=== PATIENT | male | born 1995 | race Two or more races ===

== ENCOUNTER 2024-03-11 20:41 | Emergency (ER) | payer MEDICAID, OTHER ==
[~2024-03-11] VITALS: Ht 177.8 cm; Wt 91.5 kg
[2024-03-11 22:27] LABS: Basophils # (auto) 0 10 ^3/uL (0-0.2); Basophils % (auto) 0.2 % (0.0-2.0); Eosinophils # (auto) 0.1 10 ^3/uL (0-0.8); Eosinophils % (auto) 1.1 % (0.0-7.0); Hematocrit 47.9 % (41.0-53.0); Hemoglobin 16.4 g/dL (13.5-17.5); Lymphocytes # (auto) 1.8 10 ^3/uL (0.4-5.4); Lymphocytes % (auto) 23.1 % (10.0-50.0); Mean Corpuscular Hemoglobin 30.4 pg (28.0-32.0); Mean Corpuscular Hgb Conc. 34.2 g/dL (32.0-36.0); Mean Corpuscular Volume 88.8 fL (80.0-100.0); Monocytes # (auto) 0.6 10 ^3/uL (0-1.3); Monocytes % (auto) 8.1 % (0.0-12.0); Neutrophils # (auto) 5.1 10 ^3/uL (1.6-8.6); Neutrophils % (auto) 67.5 % (37.0-80.0); Nucleated Red Blood Cells % 0.2 %; Red Blood Cells 5.39 10^6/uL (4.5-5.90); Red Cell Distribution Width 13.7 % (11.8-14.3); White Blood Cell 7.6 10^3/uL (4.4-10.8)
[2024-03-11 22:36] LABS: Chloride 107 mmol/L (98-107); Potassium 3.9 mmol/L (3.5-5.1); Sodium 139 mmol/L (136-145)
[2024-03-11 22:37] LABS: Anion Gap 6 (5-15); Calcium 10.4 mg/dL (8.5-10.1); Carbon Dioxide 26 mmol/L (20-30)
[2024-03-11 22:42] LABS: BUN/Creatinine Ratio 10.1 (10.0-20.0); Blood Urea Nitrogen 11 mg/dL (9-23); Glucose 106 mg/dL (74-106)
[2024-03-12 00:35] VITALS: PULSE 72; RESP 18; O2SAT 96
[2024-03-12 00:39] VITALS: BP 130/84; PULSE 71; RESP 17; TEMP 98; O2SAT 97
== END 2024-03-12 00:51 | disposition home or self-care (01) ==
LOC: ER 20:41
DX: R07.9 Chest pain, unspecified (principal); F12.10 Cannabis abuse, uncomplicated
CPT/HCPCS: 36415; 71045; 80048; 84484; 85025; 93005

== ENCOUNTER 2025-08-02 09:38 | Inpatient (IN) | payer MEDICAID, OTHER ==
[~2025-08-02] VITALS: Ht 177.8 cm; Wt 112.0 kg
--- NOTE | 2025-08-02 10:25 | ED.PDOC ---
GI ASSESSMENT HPI Comments This is a 29 year old male presenting to the ED with chief complaint of abdominal pain. Patient reports that he has been experiencing LLQ abdominal pain with associated headache, nausea, and diarrhea since last night. Patient relays that it started after hiking without eating food until his symptoms started, but no relief in pain after eating. Patient notes having nausea and diarrhea every hour. Patient denies any vomiting, dizziness, fever, chills, chest pain, or SOB. Chief Complaint: Abdominal Pain Time Seen by MD: 10:24 Reviewed Notes: Nurses Notes, Medications, Allergies Allergies: Coded Allergies: NO KNOWN ALLERGIES (Unverified , 08/02/25) Information Source: Patient Mode of Arrival: Ambulatory Timing: Days Duration: Since onset Prehospital treatment: None ( ) Quality: Sharp Vomitus: None Stool: Watery Severity: Moderate Recent: None Recent Hx of: None Pain Location: LLQ Modifying Factors: Nothing Associated sign and symptoms: Nausea, Diarrhea, Abdominal Pain Past Medical History PAST MEDICAL HISTORY: Denies Surgical History: Denies all surgeries Family History Family History: Reviewed,noncontributory to illness, No family hx of Cancer, No family hx of DM, No family hx of Heart garrett, No family hx of HTN, No family hx ofKidney garrett, No family hx of Liver garrett, No family hx of Lung garrett, No family hx of Stroke Social History Smoker: Non-Smoker Alcohol: Denies ETOH Use Drugs: Cocaine, Marijuana Lives In: Home Constitutional: denies: chills, diaphoresis, fatigue, fever, malaise, sweats, weakness, others EENTM: denies: blurred vision, double vision, ear bleeding, ear discharge, ear drainage, ear pain, ear ringing, eye pain, eye redness, hearing loss, mouth pain, mouth swelling, nasal discharge, nose bleeding, nose congestion, nose pain, photophobia, tearing, throat pain, throat swelling, voice changes, others Respiratory: denies: cough, hemoptysis, orthopnea, SOB at rest, shortness of breath, SOB with excertion, stridor, wheezing, others Cardiovascular: denies: chest pain, dizzy spells, diaphoresis, Dyspnea on e xertion, edema, irregular heart beat, left arm pain, lightheadedness, palpitations, PND, syncope, others Gastrointestinal: reports: abdominal pain, diarrhea, nausea; denies: abdomen distended, blood streaked bowels, constipated, dysphagia, difficulty swallowing, hematemesis, melena, poor appetite, poor fluid intake, rectal bleeding, rectal pain, vomiting, others Genitourinary: denies: burning, dysuria, flank pain, frequency, hematuria, incontinence, penile discharge, penile sore, pain, testicle pain, testicle swelling, urgency, others Neurological: reports: headache; denies: dizziness, fainting, left sided numb ness, left sided weakness, numbness, paresthesia, pre-existing deficit, right sided numbness, right sided weakness, seizure, speech problems, tingling, tremors, weakness, others Musculoskeletal: denies: back pain, gout, joint pain, joint swelling, muscle pain, muscle stiffness, neck pain, others Integumetry: denies: bruises, change in color, change in hair/nails, dryness, laceration, lesions, lumps, rash, wounds, others Allergic/Immunocompromised: denies: Difficulty Healing, Frequent Infections, Hives, Itching, others Hematologic/Lymphatic: denies: anemia, blood clots, easy bleeding, easy bruising, swollen glands, others Endocrine: denies: excessive hunger, excessive sweating, excessive thirst, excessive urination, flushing, intolerance to cold, intolerance to heat, unexplained weight gain, unexplained weight loss, others Psychiatric: denies: anxiety, bipolar disorder, depression, hopeless, panic disorder, schizophrenia, sleepless, suicidal, others All Other Systems: Reviewed and Negative Physical Exam General Appearance: Moderate Distress, Normal HEENT: Normal ENT Inspection, Pharynx Normal, TMs Normal Neck: Full Range of Motion, Non-Tender, Normal, Normal Inspection Respiratory: Chest Non-Tender, Lungs Clear, No Accessory Muscle Use, No Respiratory Distress, Normal Breath Sounds Cardiovascular: No Edema, No JVD, No Murmur, No Gallop, Normal Peripheral Pulses, Regular Rate/Rhythm Breast Exam: Deferred Gastrointestinal: Diffuse, No Organomegaly, No Pulsatile Mass, Normal Bowel Sounds, Soft Genitalia: Deferred Pelvic: Deferred Rectal: Deferred Extremities: No calf tenderness, Normal capillary refill, Normal inspection, Normal range of motion, Non-tender, No pedal edema Musculoskeletal : Apperance: Normal Neurologic: Alert, special needs child caregiver II-XII nml as Tested, No Motor Deficits, Normal Affect, Normal Mood, No Sensory Deficits Cerebellar Function: Normal Reflexes: Normal Skin: Dry, Normal Color, Warm Peripheral Pulses: 3+ Radial (R), 3+ Radial (L) Lymphatic: No Adenopathy Was a procedure done? Was a procedure done?: No GI differential Dx Differential Diagnosis: Constipation, Diverticular disease, Esophagitis, Gastritis/PUD, Gastroenteritis X-Ray, Labs, Meds, VS Vital Signs Date Time Temp Pulse Resp B/P (MAP) Pulse Ox O2 Delivery O2 Flow Rate FiO2 08/02/25 11:10 152/86 08/02/25 11:05 87 18 152/86 (108) 99 08/02/25 11:05 87 18 99 Room Air 08/02/25 09:41 97.6 93 18 155/106 96 97.6 Patient alert. Complaining of abdominal pain. Vitals stable. Blood pressure elevated. Was given clonidine. Saturation pristine on room air. No leg swelling. No shortness a breath. No chest pain. CT scan of the abdomen reviewed does show appendicitis. Establish intravenous access. Was given fluids. Was given Rocephin. Was given Flagyl. Explained to the patient. Continue monitoring. [place] [address] Ph: [phone] DIAGNOSTIC IMAGING Diagnostic Imaging Report : [id number] Signed PATIENT: BRADLY JOHNSON ACCT: [id number] UNIT: [id number] : 1995 LOC: ER ROOM / BED: / AGE / SEX: 29 / M ADM STATUS: REG ER SERVICE 1014 ORDERING PHYSICIAN: MANISHA HUTCHINSON MD PROCEDURE(s): ABPL - CT AB PEL WO CON-NO ORAL OR IV REASON: enteritis ORDER NUMBER(s): [id number], ACCESSION NUMBER(s): [id number] CT CT AB PEL WO CON-NO ORAL OR IV INDICATION: enteritis EXAM DATE: 08/02/2025 10:21 AM COMPARISON: None RADIATION DOSE: CTDIvol: 23 mGy, DLP: 1360 mGy*cm PROCEDURE: Helical CT images were obtained of the abdomen and pelvis without IV contrast Sagittal and coronal reconstructions are provided. ORAL CONTRAST: None. ADDITIONAL IMAGES / REFORMATS: None All CT scans at this medical facility are performed using dose modulation techniques as appropriate to a performed exam including the following: Automated exposure control was utilized; adjustment of the MA and/or KV according to patient size; and use of iterative reconstruction technique. FINDINGS: LUNG BASE: Normal. LIVER: Hepatic steatosis. GALLBLADDER AND BILIARY TREE: No calcified gallstones. Normal caliber wall. No intra- or extrahepatic biliary ductal dilation. PANCREAS: Normal. SPLEEN: Normal. BOWEL: Normal. Mildly enlarged proximal appendix to 9 mm could be an early developing appendicitis. ADRENALS: Normal. KIDNEYS AND URETER: Normal. BLADDER: Normal. REPRODUCTIVE ORGANS: Normal. LYMPH NODES:No lymphadenopathy. PERITONEUM: No ascites or free air. No other fluid collection. VESSELS: Normal RETROPERITONEUM: Normal. ABDOMINAL WALL: Normal. BONES: Normal. IMPRESSION: Mildly enlarged proximal appendix to 9 mm could be an early developing appendicitis. Hepatic steatosis. ATED BY: PARDEEP PENA MD DICTATED DATE/TIME: 08/02/251125 SIGNED BY: PARDEEP PENA MD SIGNED DATE/TIME: 08/02/251125 CC: Images Reviewed?: Images reviewed and evaluated by me Time of 1ST Reevaluation: 11:24 Reevaluation 1ST: Unchanged Patient Education/Counseling: Diagnosis, Treatment Family Education/Counseling: No Family Present SEPSIS Sepsis Screen Date sepsis recognized/suspect: Aug 02, 2025 Time Sepsis recognized/suspect: 09 Recent Procedure: No On Antibiotic Therapy: No Respiratory Rate >20: No Heart Rate >90: Yes Temp<36 C (96.8 F) or >38.3 C: No SBP <90 or MAP <65 mmHG: No New Acute Mental Status Change: No Is the patient on CPAP, BIPAP,: No Physician Orders Ct Ab Pel Wo Con-No Oral Or Iv (08/02/25 10:14) Vital Signs Date Time Temp Pulse Resp B/P (MAP) Pulse Ox O2 Delivery O2 Flow Rate FiO2 08/02/25 11:10 152/86 08/02/25 11:05 87 18 152/86 (108) 99 08/02/25 11:05 87 18 99 Room Air 08/02/25 09:41 97.6 93 18 155/106 96 97.6 Departure 1 Departure Time of Disposition: 10:55 Impression: Primary Impression: Acute appendicitis Qualified Codes: K35.80 - Unspecified acute appendicitis Additional Impression: Hypertensive urgency Disposition: HOME / SELF CARE / HOMELESS Condition: Good Discharged With: Self Critical Care Note Critical Care Time?: Yes (90 min-critical care time only) Stability Stability form required: No Heart Score Heart Score: Heart Score Response (Comments) Value History N/A 0 EKG N/A 0 Age N/A 0 Risk Factors N/A 0 Troponin N/A 0 Total 0 I personally scribed for MANISHA HUTCHINSON MD ([email or web address]) on 08/02/25 at 10:25. Electronically submitted by Bradly Sharif ([email or web address]). I personally scribed for MANISHA HUTCHINSON MD ([email or web address]) on 08/02/25 at 11:41. Electronically submitted by Bradly Sharif ([email or web address]). MANISHA HUTCHINSON MD Aug 02, 2025 10:25
--- NOTE | 2025-08-02 11:28 | DVH ---
CT CT AB PEL WO CON-NO ORAL OR IV INDICATION: enteritis EXAM DATE: 08/02/2025 10:21 AM COMPARISON: None RADIATION DOSE: CTDIvol: 23 mGy, DLP: 1360 mGy*cm PROCEDURE: Helical CT images were obtained of the abdomen and pelvis without IV contrast Sagittal and coronal reconstructions are provided. ORAL CONTRAST: None. ADDITIONAL IMAGES / REFORMATS: None All C T scans at this medical facility are performed using dose modulation techniques as appropriate to a p erformed exam including the following: Automated exposure control was utilized; adjustment of the MA and/or KV according to patient size; and use of iterative reconstruction technique. FINDINGS: LUNG BASE: Normal. LIVER: Hepatic steatosis. GALLBLADDER AND BILIARY TREE: No calcified gallstones. Normal caliber wall. No intra- or extrahepatic biliary ductal dilation. PANCREAS: Normal. SPLEEN: Normal. BOWEL: Normal. Mildly enlarged proximal appendix to 9 mm could be an early developing appendicitis. ADRENALS: Normal. KIDNEYS AND URETER: Normal. BLADDER: Normal. REPRODUCTIVE ORGANS: Normal. LYMPH NODES:No lymphadenopathy. PERITONEUM: No ascites or free air. No other fluid collection. VESSELS: Normal RETROPERITONEUM: Normal. ABDOMINAL WALL: Normal. BONES: Normal. IMPRESSION: Mildly enlarged proximal appendix to 9 mm could be an early developing appendicitis. Hepatic steatosis.
[2025-08-02] MEDS: SODIUM CHLORIDE 0.9% 1,000 ML IV ONE ×3 (11:45→12:20)
[2025-08-02 12:02] VITALS: PULSE 85; RESP 18; O2SAT 100
[2025-08-02 12:22] LABS: Hematocrit 46.7 % (41.0-53.0); Hemoglobin 15.8 g/dL (13.5-17.5); Mean Corpuscular Hemoglobin 30.1 pg (28.0-32.0); Mean Corpuscular Volume 89.2 fL (80.0-100.0); Nucleated Red Blood Cells % 0.0 %
[2025-08-02 12:28] LABS: Chloride 104 mmol/L (98-107); Potassium 3.8 mmol/L (3.5-5.1); Sodium 139 mmol/L (136-145)
[2025-08-02 12:29] LABS: Anion Gap 13 (5-15); Carbon Dioxide 22 mmol/L (20-31)
[2025-08-02 12:30] LABS: Calcium 10.3 mg/dL (8.7-10.4)
[2025-08-02 12:34] LABS: BUN/Creatinine Ratio 11.0 (10.0-20.0); Blood Urea Nitrogen 9 mg/dL (9-23)
[2025-08-02 12:35] LABS: Glucose 123 mg/dL (74-106)
[2025-08-02] MEDS: PANTOPRAZOLE 40 MG/10 ML VIAL INJ IV ONE (13:30)
[2025-08-02] MEDS ORDERED: ONDANSETRON HCL 4 MG/2 ML VIAL IV PRN (13:30)
--- NOTE | 2025-08-02 13:57 | DVH ---
CHEST RADIOGRAPH Indication: preop Technique: Single frontal view of the chest was obtained Comparison: XY CHEST PORTABLE on DOS: 03/11/24 FINDINGS: Lines and Tubes: None Lungs: No focal consolidation. Pleura: No effusion. No pneumothorax. Cardiomediastinal contours: Unremarkable Bones: No acute osseous abnormality. IMPRESSION: 1. No acute cardiopulmonary disease. 2. Stable chest x-ray when compared to 03/11/2024.
[2025-08-02 14:09] LABS: INR 1.01 (0.9-1.15); Partial Thromboplastin Time 31.3 SEC (24.5-34.5); Prothrombin Time 10.7 sec (9.3-11.8)
--- NOTE | 2025-08-02 15:13 | DVHHP2 ---
History of Present Illness Reason for Visit: Abdominal pain History of Present Illness 29-year-old male presents for evaluation of abdominal pain. Patient reports developing left lower quadrant pain that radiated to his umbilicus region since 7:00 p.m. last night. He states that it slightly subsided today in the morning. He reported episodes of nausea with vomiting and cold sweats. Currently denies pain. Past Medical History Denies Past Surgical History Denies Family History Noncontributory Smoke: No ALCOHOL: none Drugs: Cocaine, Marijuana Lives: with Family Review of Systems Review of Systems Review of systems are currently negative otherwise addressed in HPI. Allergies: Coded Allergies: NO KNOWN ALLERGIES (Unverified , 08/02/25) Medications Current Medications Medications Dose Ordered Sig/Gama Route Start Time Stop Time Status Last Admin Dose Admin Ceftriaxone Sodium 50 ml @ 100 mls/hr DAILY@09 IV 08/03/25 09:00 Metronidazole 100 ml @ 100 mls/hr Q8HR IV 08/02/25 14:00 Ondansetron HCl 4 mg Q4HP PRN IV 08/02/25 13:30 Sodium Chloride 1,000 ml @ 100 mls/hr Q10H IV 08/02/25 13:30 Pantoprazole Sodium 40 mg DAILY IV 08/03/25 10:00 Exam Vital Signs Vital Signs Date Time Temp Pulse Resp B/P (MAP) Pulse Ox O2 Delivery O2 Flow Rate FiO2 08/02/25 14:13 98.0 94 16 146/92 (110) 98 98.0 08/02/25 12:02 Room Air* 0 21 Exam Gen: 29-year-old male in mild distress. Skin: Warm, dry, normal color and texture, no rash. HEENT: Normocephalic atraumatic, mucous membranes moist and pink. Neck: Cervical and supraclavicular nodes normal without enlargement, trachea is midline, thyroid gland is normal without masses. Pulmonary: Clear to auscultation and percussion bilaterally. Cardiac: Regular rate and rhythm. No murmur Abdomen: Soft, nontender, nondistended, bowel sounds present all 4 quadrants, no guarding, no rigidity, no organomegaly. Extremities: No cyanosis, clubbing, no edema Neuro: Cranial nerves II through XII grossly intact, normal affect and speech, no focal motor deficits. Labs/Xrays ORDERING PHYSICIAN: MANISHA HUTCHINSON MD PROCEDURE(s): ABPL - CT AB PEL WO CON-NO ORAL OR IV REASON: enteritis ORDER NUMBER(s): [id number], ACCESSION NUMBER(s): [id number] CT CT AB PEL WO CON-NO ORAL OR IV INDICATION: enteritis EXAM DATE: 08/02/2025 10:21 AM COMPARISON: None RADIATION DOSE: CTDIvol: 23 mGy, DLP: 1360 mGy*cm PROCEDURE: Helical CT images were obtained of the abdomen and pelvis without IV contrast Sagittal and coronal reconstructions are provided. ORAL CONTRAST: None. ADDITIONAL IMAGES / REFORMATS: None All CT scans at this medical facility are performed using dose modulation techniques as appropriate to a performed exam including the following: Automated exposure control was utilized; adjustment of the MA and/or KV according to patient size; and use of iterative reconstruction technique. FINDINGS: LUNG BASE: Normal. LIVER: Hepatic steatosis. GALLBLADDER AND BILIARY TREE: No calcified gallstones. Normal caliber wall. No intra- or extrahepatic biliary ductal dilation. PANCREAS: Normal. SPLEEN: Normal. BOWEL: Normal. Mildly enlarged proximal appendix to 9 mm could be an early developing appendicitis. ADRENALS: Normal. KIDNEYS AND URETER: Normal. BLADDER: Normal. REPRODUCTIVE ORGANS: Normal. LYMPH NODES:No lymphadenopathy. PERITONEUM: No ascites or free air. No other fluid collection. VESSELS: Normal RETROPERITONEUM: Normal. ABDOMINAL WALL: Normal. BONES: Normal. IMPRESSION: Mildly enlarged proximal appendix to 9 mm could be an early developing appendicitis. Hepatic steatosis. RING PHYSICIAN: PORTIA DINERO PROCEDURE(s): CXR1 - CHEST XRAY 1 VIEW REASON: preop ORDER NUMBER(s): [id number], ACCESSION NUMBER(s): [id number] CHEST RADIOGRAPH Indication: preop Technique: Single frontal view of the chest was obtained Comparison: XY CHEST PORTABLE on DOS: 03/11/24 FINDINGS: Lines and Tubes: None Lungs: No focal consolidation. Pleura: No effusion. No pneumothorax. Cardiomediastinal contours: Unremarkable Bones: No acute osseous abnormality. IMPRESSION: 1. No acute cardiopulmonary disease. 2. Stable chest x-ray when compared to 03/11/2024. ATED BY: ALIA SMITH Jr. DO Labs Test 08/02/25 12:09 Range/Units White Blood Count 13.9 H 4.4-10.8 10^3/uL Red Blood Count 5.23 4.5-5.90 10^6/uL Hemoglobin 15.8 13.5-17.5 g/dL Hematocrit 46.7 41.0-53.0 % Mean Corpuscular Volume 89.2 80.0-100.0 fL Mean Corpuscular Hemoglobin 30.1 28.0-32.0 pg Mean Corpuscular Hemoglobin Concent 33.8 32.0-36.0 g/dL Red Cell Distribution Width 14.1 11.8-14.3 % Platelet Count 326 140-450 10^3/uL Mean Platelet Volume 7.5 6.9-10.8 fL Neutrophils (%) (Auto) 81.6 H 37.0-80.0 % Lymphocytes (%) (Auto) 12.8 10.0-50.0 % Monocytes (%) (Auto) 4.9 0.0-12.0 % Eosinophils (%) (Auto) 0.1 0.0-7.0 % Basophils (%) (Auto) 0.6 0.0-2.0 % Neutrophils # (Auto) 11.3 H 1.6-8.6 10 ^3/uL Lymphocytes # (Auto) 1.8 0.4-5.4 10 ^3/uL Monocytes # (Auto) 0.7 0-1.3 10 ^3/uL Eosinophils # (Auto) 0 0-0.8 10 ^3/uL Basophils # (Auto) 0.1 0-0.2 10 ^3/uL Nucleated Red Blood Cells 0.0 % Prothrombin Time 10.7 9.3-11.8 sec Prothrombin Time INR 1.01 0.9-1.15 Activated Partial Thromboplast Time 31.3 24.5-34.5 SEC Sodium Level 139 136-145 mmol/L Potassium Level 3.8 3.5-5.1 mmol/L Chloride Level 104 98-107 mmol/L Carbon Dioxide Level 22 20-31 mmol/L Anion Gap 13 5-15 Blood Urea Nitrogen 9 9-23 mg/dL Creatinine 0.82 0.700-1.30 mg/dL Glomerular Filtration Rate Calc 123 >90 mL/min BUN/Creatinine Ratio 11.0 10.0-20.0 Serum Glucose 123 H 74-106 mg/dL Calcium Level 10.3 8.7-10.4 mg/dL SEPSIS Sepsis Screen Date sepsis recognized/suspect: Aug 02, 2025 Time Sepsis recognized/suspect: 1202 Recent Procedure: No On Antibiotic Therapy: No Respiratory Rate >20: No Heart Rate >90: No Temp<36 C (96.8 F) or >38.3 C: No SBP <90 or MAP <65 mmHG: No New Acute Mental Status Change: No Is the patient on CPAP, BIPAP,: No Physician Orders Ct Ab Pel Wo Con-No Oral Or Iv (08/02/25 10:14) Urinalysis (08/02/25 11:41) Sodium Chloride 0.9% (08/02/25 11:45) Ceftriaxone 1gm/50ml (Rocephin) (08/03/25 09:00) Metronidazole 500mg/100ml (Flagyl 500mg/ (08/02/25 14:00) Type And Screen (08/02/25 13:27) Admit (08/02/25 13:27) Ondansetron Hcl (Zofran) (08/02/25 13:30) Complete Blood Count (08/03/25 04:00) Comprehensive Metabolic Panel (08/03/25 04:00) Npo (Nothing By Mouth) Diet (08/02/25 Lunch) Condition: Stable (08/02/25 13:27) Bedrest With Bathroom Privileg (08/02/25 13:27) Chest Xray 1 View (08/02/25 13:27) Sodium Chloride 0.9% (08/02/25 13:30) Pantoprazole (Protonix) (08/03/25 10:00) * Surgical Consult (08/02/25 14:49) Vital Signs Date Time Temp Pulse Resp B/P (MAP) Pulse Ox O2 Delivery O2 Flow Rate FiO2 08/02/25 14:13 98.0 94 16 146/92 (110) 98 98.0 08/02/25 12:02 85 18 100 Room Air* 0 21 08/02/25 12:02 98.1 85 18 153/97 (115) 100 98.1 08/02/25 11:10 152/86 08/02/25 11:05 87 18 152/86 (108) 99 08/02/25 11:05 87 18 99 Room Air 08/02/25 09:41 97.6 93 18 155/106 96 97.6 Laboratory Tests Test 08/02/25 12:09 White Blood Count 13.9 10^3/uL (4.4-10.8) H Medications Medications Dose Ordered Sig/Gama Route Start Time Stop Time Status Last Admin Dose Admin Ceftriaxone Sodium 50 ml @ 100 mls/hr ONCE ONCE IV 08/02/25 11:45 08/02/25 12:14 DC 08/02/25 12:20 100 MLS/HR Metronidazole 100 ml @ 100 mls/hr ONCE ONCE IV 08/02/25 11:45 08/02/25 12:44 DC 08/02/25 13:00 100 MLS/HR Sodium Chloride 1,000 ml @ 1,000 mls/hr Q1H ONCE IV 08/02/25 11:45 08/02/25 12:44 DC 08/02/25 12:20 1,000 MLS/HR Assessment/Plan Assessment/Plan Assessment Early appendicitis Hypertension Plan Admit the patient to [facility] to the hospitalist Surgical consultation Rocephin/Flagyl NPO Pain management Continue treatment per orders. Plan discussed with: Patient My Orders Orders - PORTIA DINERO Procedure Category Date Status Time Ceftriaxone 1gm/50ml PHA 08/03/25 In Process (Rocephin) 09:00 Metronidazole PHA 08/02/25 In Process 500mg/100ml (Flagyl 14:00 Type And Screen BBK 08/02/25 In Process 13:27 Admit ADMIT 08/02/25 Transmitted 13:27 Ondansetron Hcl PHA 08/02/25 In Process (Zofran) 13:30 Complete Blood Count LAB 08/03/25 Verified 04:00 Comprehensive LAB 08/03/25 Verified Metabolic Panel 04:00 Npo (Nothing By DIET 08/02/25 Transmitted Mouth) Diet Lunch Condition: Stable DANIELA 08/02/25 In Process 13:27 Bedrest With Bathroom DANIELA 08/02/25 In Process Privileg 13:27 Chest Xray 1 View XY 08/02/25 Resulted 13:27 Sodium Chloride 0.9% PHA 08/02/25 In Process 13:30 Pantoprazole PHA 08/03/25 In Process (Protonix) 10:00 * Surgical Consult CONS 08/02/25 Transmitted 14:49 Date of Service: Aug 02, 2025 Billing Provider: PORTIA DINERO Common Visit Codes: [id number] INP/OBS CARE (HIGH) PORTIA DINERO Aug 02, 2025 15:13
[2025-08-02 15:38] VITALS: BP 142/97; PULSE 87; RESP 18; TEMP 98.1; O2SAT 98
[2025-08-02 15:41] VITALS: O2SAT 98
[2025-08-02 16:58] VITALS: BP 142/97; PULSE 88; RESP 16; TEMP 98.1; O2SAT 98
[2025-08-02] MEDS: SODIUM CHLORIDE 0.9% 1,000 ML IV SCH (18:55)
[2025-08-02 21:00] VITALS: BP 147/74; PULSE 93; RESP 20; TEMP 98.6; O2SAT 97
[2025-08-02] MEDS ORDERED: HYDROmorphone HCL 2 MG/ML VL/or syr IV PRN (22:15)
[2025-08-03 01:00] VITALS: BP 139/75; PULSE 81; RESP 20; TEMP 98.5; O2SAT 98
[2025-08-03 02:51] LABS: Urine Protein, UAD Negative (Negative)
[2025-08-03 05:00] VITALS: BP 116/74; PULSE 67; RESP 20; TEMP 98.1; O2SAT 98
[2025-08-03 06:33] LABS: Hematocrit 42.8 % (41.0-53.0); Hemoglobin 14.5 g/dL (13.5-17.5); Mean Corpuscular Hemoglobin 30.4 pg (28.0-32.0); Mean Corpuscular Volume 89.7 fL (80.0-100.0); Nucleated Red Blood Cells % 0.1 %
[2025-08-03 07:01] LABS: Albumin 4.6 g/dL (3.2-4.8); Anion Gap 12 (5-15); BUN/Creatinine Ratio 13.3 (10.0-20.0); Blood Urea Nitrogen 12 mg/dL (9-23); Calcium 9.4 mg/dL (8.7-10.4); Carbon Dioxide 23 mmol/L (20-31); Chloride 106 mmol/L (98-107); Potassium 3.7 mmol/L (3.5-5.1); Sodium 141 mmol/L (136-145); Total Protein 7.3 g/dL (5.7-8.2)
[2025-08-03 07:02] LABS: Bilirubin, Total 0.8 mg/dL (0.2-1.0)
[2025-08-03 07:05] LABS: Alanine Aminotransferase 192 U/L (7-40); Alkaline Phosphatase 117 U/L (46-116); Glucose 115 mg/dL (74-106)
--- NOTE | 2025-08-03 08:58 | DVHINCON2 ---
Date of service: Aug 03, 2025 History of Present Illness 29-year-old otherwise healthy male complaining of one day history of left lower quadrant abdominal pain after hiking yesterday without fevers, chills, nausea or vomiting. Currently patient reports significant improvement in his abdominal pain. Past Medical History None Past Surgical History None Family History: FH: breast cancer G8 MOTHER Family History Noncontributory Social History Positive for marijuana and cocaine. Allergies: Coded Allergies: NO KNOWN ALLERGIES (Unverified , 08/02/25) Current Medications Current Medications Medications (Trade) Dose Ordered Sig/Gama Route PRN Reason Start Time Stop Time Status Last Admin Ceftriaxone Sodium 50 ml @ 100 mls/hr DAILY@09 IV 08/03/25 09:00 Metronidazole 100 ml @ 100 mls/hr Q8HR IV 08/02/25 14:00 08/03/25 05:14 Ondansetron HCl (Zofran) 4 mg Q4HP PRN IV NAUSEA / VOMITING 08/02/25 13:30 Sodium Chloride 1,000 ml @ 100 mls/hr Q10H IV 08/02/25 13:30 08/02/25 23:30 Pantoprazole Sodium (Protonix) 40 mg DAILY IV 08/03/25 10:00 Hydromorphone HCl (Dilaudid Injection) 0.5 mg Q8HPRN PRN IV SEVERE PAIN (7-10 PAIN SCALE) 08/02/25 22:15 Vital Signs Vital Signs Date Time Temp Pulse Resp B/P (MAP) Pulse Ox O2 Delivery O2 Flow Rate FiO2 08/03/25 08:00 Room Air* 0 21 08/03/25 05:00 98.1 67 20 116/74 (88) 98 98.1 Physical Exam GEN: Age-appropriate male in no acute distress. Alert. HEENT: Normocephalic atraumatic. Moist mucous membranes. Anicteric sclerae. CV: RRR Respiratory: CTAB ABD: Soft. Very minimal right lower quadrant tenderness to palpation without guarding or rebound. Per patient it is significant improved since yesterday. No guarding or rebound. CT of the abdomen and pelvis: Mildly enlarged to proximal appendix to 9 mm. Labs/Diagnostic Data Labs Test 08/03/25 06:00 08/03/25 01:50 08/02/25 12:09 Range/Units White Blood Count 8.7 # 4.4-10.8 10^3/uL Red Blood Count 4.76 4.5-5.90 10^6/uL Hemoglobin 14.5 13.5-17.5 g/dL Hematocrit 42.8 41.0-53.0 % Mean Corpuscular Volume 89.7 80.0-100.0 fL Mean Corpuscular Hemoglobin 30.4 28.0-32.0 pg Mean Corpuscular Hemoglobin Concent 33.8 32.0-36.0 g/dL Red Cell Distribution Width 14.1 11.8-14.3 % Platelet Count 320 140-450 10^3/uL Mean Platelet Volume 7.6 6.9-10.8 fL Neutrophils (%) (Auto) 61.3 37.0-80.0 % Lymphocytes (%) (Auto) 28.4 10.0-50.0 % Monocytes (%) (Auto) 9.4 0.0-12.0 % Eosinophils (%) (Auto) 0.5 0.0-7.0 % Basophils (%) (Auto) 0.4 0.0-2.0 % Neutrophils # (Auto) 5.3 1.6-8.6 10 ^3/uL Lymphocytes # (Auto) 2.5 0.4-5.4 10 ^3/uL Monocytes # (Auto) 0.8 0-1.3 10 ^3/uL Eosinophils # (Auto) 0 0-0.8 10 ^3/uL Basophils # (Auto) 0 0-0.2 10 ^3/uL Nucleated Red Blood Cells 0.1 % Sodium Level 141 136-145 mmol/L Potassium Level 3.7 3.5-5.1 mmol/L Chloride Level 106 98-107 mmol/L Carbon Dioxide Level 23 20-31 mmol/L Anion Gap 12 5-15 Blood Urea Nitrogen 12 9-23 mg/dL Creatinine 0.90 0.700-1.30 mg/dL Glomerular Filtration Rate Calc 120 >90 mL/min BUN/Creatinine Ratio 13.3 10.0-20.0 Serum Glucose 115 H 74-106 mg/dL Calcium Level 9.4 8.7-10.4 mg/dL Total Bilirubin 0.8 0.2-1.0 mg/dL Aspartate Amino Transferase (AST) 119 H 13-40 U/L Alanine Aminotransferase (ALT) 192 H 7-40 U/L Alkaline Phosphatase 117 H 46-116 U/L Total Protein 7.3 5.7-8.2 g/dL Albumin 4.6 3.2-4.8 g/dL Urine Color Yellow Yellow Urine Clarity Clear Clear Urine pH 6.5 5.0-9.0 Urine Specific [place] 1.023 1.001-1.035 Urine Protein Negative Negative Urine Ketones Trace Negative Urine Blood Negative Negative /uL Urine Nitrite Negative Negative Urine Bilirubin Negative Negative Urine Urobilinogen Normal Negative mg/dL Urine Leukocyte Esterase Negative Negative /uL Urine RBC None seen 0 - 3 /hpf Urine Microscopic WBC 1 0-3 /HPF Urine Squamous Epithelial Cells None seen <5 /hpf Urine Bacteria None seen None Seen /hpf Urine Mucus Few None Seen Urine Glucose Normal Normal mg/dL Prothrombin Time 10.7 9.3-11.8 sec Prothrombin Time INR 1.01 0.9-1.15 Activated Partial Thromboplast Time 31.3 24.5-34.5 SEC Assessment 1. Possible early acute appendicitis however clinically improving on antibiotics. Plan/Recommendation 1. Clear liquid diet. 2. No acute surgical intervention necessary at this time as patient is clinically improving antibiotics. I recommend discharging home with liquid diet with oral antibiotics such as Augmentin or Cipro/Flagyl for next five days. Instructed the patient to return to the emergency room if the pain gets worse. Patient agreed to the plan. Plan discussed with: Patient ELIZABETH LUIS MD Aug 03, 2025 08:58
[2025-08-03 09:00] VITALS: BP 123/82; PULSE 68; RESP 20; TEMP 97.9; O2SAT 97
[2025-08-03] MEDS: PANTOPRAZOLE 40 MG/10 ML VIAL INJ IV SCH (11:33)
[2025-08-03 13:00] VITALS: BP 138/90; PULSE 71; RESP 20; TEMP 97.7; O2SAT 98
[2025-08-03] MEDS ORDERED: NALO4SPR2 (15:50)
[2025-08-03] MEDS ORDERED: AUG875T PO (15:50)
[2025-08-03] MEDS ORDERED: HYDR-4902 PO (15:50)
--- NOTE | 2025-08-03 15:55 | DVHDS2 ---
Discharge Summary Date of Admission Aug 02, 2025 at 13:27 Date of Discharge: Aug 03, 2025 Labs/Diagnostic Data: Laboratory Results Test 08/03/25 06:00 08/03/25 01:50 08/02/25 12:09 White Blood Count 8.7 10^3/uL (4.4-10.8) Red Blood Count 4.76 10^6/uL (4.5-5.90) Hemoglobin 14.5 g/dL (13.5-17.5) Hematocrit 42.8 % (41.0-53.0) Mean Corpuscular Volume 89.7 fL (80.0-100.0) Mean Corpuscular Hemoglobin 30.4 pg (28.0-32.0) Mean Corpuscular Hemoglobin Concent 33.8 g/dL (32.0-36.0) Red Cell Distribution Width 14.1 % (11.8-14.3) Platelet Count 320 10^3/uL (140-450) Mean Platelet Volume 7.6 fL (6.9-10.8) Neutrophils (%) (Auto) 61.3 % (37.0-80.0) Lymphocytes (%) (Auto) 28.4 % (10.0-50.0) Monocytes (%) (Auto) 9.4 % (0.0-12.0) Eosinophils (%) (Auto) 0.5 % (0.0-7.0) Basophils (%) (Auto) 0.4 % (0.0-2.0) Neutrophils # (Auto) 5.3 10 ^3/uL (1.6-8.6) Lymphocytes # (Auto) 2.5 10 ^3/uL (0.4-5.4) Monocytes # (Auto) 0.8 10 ^3/uL (0-1.3) Eosinophils # (Auto) 0 10 ^3/uL (0-0.8) Basophils # (Auto) 0 10 ^3/uL (0-0.2) Nucleated Red Blood Cells 0.1 % Sodium Level 141 mmol/L (136-145) Potassium Level 3.7 mmol/L (3.5-5.1) Chloride Level 106 mmol/L (98-107) Carbon Dioxide Level 23 mmol/L (20-31) Anion Gap 12 (5-15) Blood Urea Nitrogen 12 mg/dL (9-23) Creatinine 0.90 mg/dL (0.700-1.30) Glomerular Filtration Rate Calc 120 mL/min (>90) BUN/Creatinine Ratio 13.3 (10.0-20.0) Serum Glucose 115 mg/dL (74-106) Calcium Level 9.4 mg/dL (8.7-10.4) Total Bilirubin 0.8 mg/dL (0.2-1.0) Aspartate Amino Transferase (AST) 119 U/L (13-40) Alanine Aminotransferase (ALT) 192 U/L (7-40) Alkaline Phosphatase 117 U/L (46-116) Total Protein 7.3 g/dL (5.7-8.2) Albumin 4.6 g/dL (3.2-4.8) Urine Color Yellow (Yellow) Urine Clarity Clear (Clear) Urine pH 6.5 (5.0-9.0) Urine Specific [place] 1.023 (1.001-1.035) Urine Protein Negative (Negative) Urine Ketones Trace (Negative) Urine Blood Negative /uL (Negative) Urine Nitrite Negative (Negative) Urine Bilirubin Negative (Negative) Urine Urobilinogen Normal mg/dL (Negative) Urine Leukocyte Esterase Negative /uL (Negative) Urine RBC None seen /hpf (0 - 3) Urine Microscopic WBC 1 /HPF (0-3) Urine Squamous Epithelial Cells None seen /hpf (<5) Urine Bacteria None seen /hpf (None Seen) Urine Mucus Few (None Seen) Urine Glucose Normal mg/dL (Normal) Prothrombin Time 10.7 sec (9.3-11.8) Prothrombin Time INR 1.01 (0.9-1.15) Activated Partial Thromboplast Time 31.3 SEC (24.5-34.5) Other Laboratory Tests 08/03/25 06:00 Brief Hx & Hospital Course: 29-year-old male with no significant past medical history except morbid obesity classII who initially presented to the hospital lower abdominal pain found to have early onset of acute appendicitis. CT abdominal pelvis was showing 9 mm appendix enlargement. General surgery med with the patient had put the patient on clear liquid diet and cleared the patient to be discharged. Patient currently denies any abdominal pain nausea vomiting but tolerating clear liquid diet. Patient is requesting to go home. I explained him in detail that in case abdominal pain comes back or nausea vomiting or fever chills or any concerns please return to ER for repeat admission. Patient is understandable. Understanding and agreeable to plan. Condition at Discharge: Stable Final Diagnosis/Problems List 1. Lower abdominal pain, resolved currently tolerating clear liquid diet and 2. Early acute appendicitis, improving on IV antibiotics, general surgery cleared the patient to be discharged on clear liquid as well as p.o. antibiotics 3. Mild leukocytosis 4. Transaminitis, outpatient follow up with PCP with repeat CMP 5. Morbid obesity class II Discharge Disposition: Home SNF Discharge Will this Physician continue t: No Discharge Instruct/Medications Diet: See Comment Diet comment: Clear liquid diet only until you see General surgery. Activity: See Comment Activity comment: No driving, no sign of bleeding documents, no pulling admission revealed on [place]. Follow Up/Referral: Follow up with the PCP in 1-2 weeks. Repeat CMP Follow up with general surgery, Dr. Shar Noguera in 1-2 weeks. Medications: Medication as prescribed. New Medications: Amoxicillin & Pot Clavulanate (Augmentin Tablet) 875 Mg Tb 875 MG PO BID for 7 Days, #14 TAB Hydrocodone-Acetaminophen (Hydrocodone Bitartrate/AC 5-325 mg) 1 Tab Tab 1 TAB PO Q6HPRN PRN, #10 TAB Naloxone HCl (Narcan) 4 Mg/0.1 Ml Spr 4 MG NA [employer]ENT, #2 SPRAY Scheduled Amoxicillin & Pot Clavulanate (Augmentin Tablet), 875 MG PO BID Naloxone HCl (Narcan), 4 MG NA [employer] IN[employer]IG[employer]IVE AGENT Scheduled PRN Hydrocodone-Acetaminophen (Hydrocodone Bitartrate/AC 5-325 mg), 1 TAB PO Q6HPRN PRN Discharge Statement: "Patient was advised to return to the ER or call 911 if any headaches, dizziness, shortness of breath, chest pain, abdominal pain, bleeding, fevers, or worsening of medical condition. Patient was counseled about treatment plan, medications, possible side effects, patientverbalized understanding. All questions were answered to the best of my ability. This discharge took greater then 30 minutes in planning, reviewing documentation, counseling the patient, and discussing with other team members." ASSESSMENT ASSESSMENT Assessment 1. Lower abdominal pain, resolved currently tolerating clear liquid diet and 2. Early acute appendicitis, improving on IV antibiotics, general surgery cleared the patient to be discharged on clear liquid as well as p.o. antibiotics 3. Mild leukocytosis 4. Transaminitis, outpatient follow up with PCP with repeat CMP 5. Morbid obesity class II Date of Service: Aug 03, 2025 Billing Provider: CHRIS ATKINSON MD Common Visit Codes: 78923-TNL/OBS DISCH DAY >30min CHRIS ATKINSON MD Aug 03, 2025 15:55
[2025-08-03 17:00] VITALS: BP 118/85; PULSE 73; RESP 20; TEMP 98.5; O2SAT 98
[2025-08-03 18:07] VITALS: BP 152/86; TEMP 36.9
== END 2025-08-03 18:27 | disposition home or self-care (01) | DRG 254 ==
LOC: ER 09:38 → OVERFLOW 13:27 → WEST WING 15:38
PROVIDERS: ADMIT Internal Medicine; ATTEND Internal Medicine
DX: K35.80 Unspecified acute appendicitis (principal); D72.829 Elevated white blood cell count, unspecified; I10 Essential (primary) hypertension; R74.01 Elevation of levels of liver transaminase levels; E66.01 Morbid (severe) obesity due to excess calories; E66.812 Obesity, class 2; Z80.3 Family history of malignant neoplasm of breast; Z68.36 Body mass index [BMI] 36.0-36.9, adult
CPT/HCPCS: 36415; 71045; 74176; 80048; 80053; 81001; 85025; 85610; 85730; 86850; 86900; 86901; 96365; 99291; 99292; G0378; J2470; J3490